=== PATIENT | female | born 2000 | race African-American/Black ===

== ENCOUNTER 2019-08-25 06:24 | Emergency (ER) | payer MEDICAID ==
[~2019-08-25] VITALS: Ht 162.6 cm; Wt 125.0 kg
[~2019-08-25 06:24] MED LIST: ARIP10TA33 PO; DIPH25CA61 PO; SERT50TA28 PO
[2019-08-25 06:27] VITALS: BP 127/79
--- NOTE | 2019-08-25 07:05 | NUR ---
PT ASSISTED TO ROOM BY STAFF, UNWILLING TO SIT AT THIS TIME. APPEARS VERY ANXIOUS. AWAITING ERP.
--- NOTE | 2019-08-25 07:20 | NUR ---
PT WITH SI/HI, UNABLE TO REALLY DESCRIBE PLAN AND UNSURE WHY SHE IS HAVING THOSE THOUGHTS. WAS AT [facility] FOR SAME AND WALKED OUT.
[2019-08-25] MEDS ORDERED: LORazepam 2 MG/ML, 1ML IM ONE (07:30)
[2019-08-25] MEDS ORDERED: HALOPERIDOL 5 MG/ML IM ONE (07:30)
[2019-08-25] MEDS ORDERED: HALOPERIDOL 5 MG/ML ONE (07:33)
[2019-08-25] MEDS ORDERED: LORazepam 2 MG/ML, 1ML ONE (07:33)
--- NOTE | 2019-08-25 07:40 | NUR ---
SPOKE WITH PATIENT KAYODE. NO SPECIFIC SI/HI PLAN. HAS NEVER ATTEMPTED TO HURT HERSELF OR SOMEONE ELSE. SITTER AT BEDROOM. ROOM SECURE POSSIBLE. PATIENT PACING AROUND AND ANXIOUS. PT MEDICATED PER MAR. AGREEABLE TO POC.
--- NOTE | 2019-08-25 08:32 | NUR ---
PATIENT CONTINUES TO BE RESTLESS AND PACING IN ROOM. SITTER OUTSIDE ROOM.
[2019-08-25 09:42] LABS: ALBUMIN 3.8 g/dL (3.4-5.0); ANION GAP 9 mmol/L (5-15); CALCIUM 9.4 mg/dL (8.5-10.1); CHLORIDE 105 mmol/L (98-107); CREATININE 0.79 mg/dL (0.55-1.02)
[2019-08-25 09:56] LABS: MEAN CORPUSCULAR HEMOGLOBIN 24.4 pg (27.0-34.8); MEAN CORPUSCULAR HGB CONC 32.3 g/dL (32.4-35.8); MEAN CORPUSCULAR VOLUME 75.6 fL (80-100); MEAN PLATELET VOLUME 8.7 fL (7.4-10.4); PLATELET COUNT 374 x10^3/uL (130-400); RED BLOOD COUNT 5.29 x10^6/uL (3.82-5.3); RED CELL DISTRIBUTION WIDTH 15.4 % (9.6-15.2)
--- NOTE | 2019-08-25 09:56 | NUR ---
Report to LAUREN Castro.
[2019-08-25 09:58] LABS: BASOPHILS # (AUTO) 0.08 x10^3/uL (0-0.3); BASOPHILS % (AUTO) 1 % (0-1); EOSINOPHILS # (AUTO) 0.02 x10^3/uL (0-0.8); EOSINOPHILS % (AUTO) 0 % (1-7); LYMPHOCYTES # (AUTO) 1.94 x10^3/uL (1-6.1); LYMPHOCYTES % (AUTO) 16 % (22-44); MD SCAN; MONOCYTES # (AUTO) 0.35 x10^3/uL (0-1.4); MONOCYTES % (AUTO) 3 % (2-9); NEUTROPHILS # (AUTO) 9.82 x10^3/uL (1.8-8.0); NEUTROPHILS % (AUTO) 80 % (42-75)
--- NOTE | 2019-08-25 10:02 | NUR ---
PT MOVED TO PSYCH ROOM IN ROOM 3. PT BEING OBSERVED BY SITTER. PT CALM AND COOPERATIVE.
--- NOTE | 2019-08-25 12:12 | NUR ---
PT UP AND WALKED TO USE PHONE WITH STEADY GAIT. PT IN RESTROOM FOR UA SAMPLE. [facility]ENATE PSYCH IT ACCOUNT MANAGER WAITING IN ROOM TO SEE PT.
[2019-08-25 12:43] LABS: MICROSCOPIC INDICATED
[2019-08-25 12:45] LABS: CULTURE INDICATED? NO
[2019-08-25 12:50] LABS: CANNABINOID SCREEN, URINE Negative (Negative); METHADONE SCREEN, URINE Negative (Negative); OPIATE SCREEN, URINE Negative (Negative)
[2019-08-25 12:58] LABS: AMPHETAMINE SCREEN, URINE Positive (Negative); BARBITURATE SCREEN, URINE Negative (Negative); BENZODIAZEPINE SCREEN, URINE Negative (Negative); COCAINE SCREEN, URINE Negative (Negative)
[2019-08-25] MEDS ORDERED: ARIPIPRAZOLE 15 MG TABLET PO SCH (13:00)
--- NOTE | 2019-08-25 13:01 | NUR ---
PT GIVEN MEAL TRAY. PT DRINKING WATER.
--- NOTE | 2019-08-25 13:09 | NUR ---
REPORT RECEIVED FROM LAUREN MCKENZIE. ASSUMING PRIMARY CARE OF PT.
--- NOTE | 2019-08-25 13:19 | NUR ---
PT SITTING UP ON [facility] REQUESTING THAT HER CELL PHONE BE CHARGED. RN INFORMED PT THAT SHE WAS NOT ALOUD TO HAVE HER CELL PHONE AND LOOM DOFFER. PT VERBALIZED UNDERSTANDING. SITTER OUTSIDE OF ROOM MONITORING PATIENT. SI PRECAUTIONS IMPLEMENTED. RN TO CONTINUE TO MONITOR.
--- NOTE | 2019-08-25 13:39 | NUR ---
PT MEDICATED PER EMAR.
--- NOTE | 2019-08-25 14:37 | NUR ---
REPORT TO LAUREN MCGHEE. PT TO BE TRANSPORTED TO ROOM 263.
[2019-08-25] MEDS ORDERED: TRAZODONE 100MG TABLET PO SCH (21:00)
[2019-08-26] MEDS ORDERED: ZOLP5TAB PO (13:56)
== END 2019-08-25 16:14 | disposition other institution (70) ==
LOC: ED 07:34
DX: R45.851 Suicidal ideations (principal); F31.9 Bipolar disorder, unspecified; R00.0 Tachycardia, unspecified
CPT/HCPCS: 36415; 80048; 80307; 81001; 82040; 84703; 85025; 93005; 96372; 99284; J1630; J2060

== ENCOUNTER 2019-08-25 14:23 | Inpatient (IN) | payer MEDICAID ==
[~2019-08-25] VITALS: Ht 162.6 cm; Wt 124.2 kg
[2019-08-25] MEDS ORDERED: ONDANSETRON ODT 4 MG PO PRN (15:00)
[2019-08-25] MEDS ORDERED: ACETAMINOPHEN 325 MG TABLET PO PRN (15:00)
[2019-08-25] MEDS ORDERED: POLYETHYLENE GLYCOL 17 GM PACKET PO PRN (15:00)
[2019-08-25] MEDS ORDERED: BISACODYL 10 MG SUPP PR PRN (15:00)
[2019-08-25] MEDS ORDERED: DOCUSATE 100 MG CAPSULE PO PRN (15:00)
[2019-08-25 15:16] VITALS: BP 116/81
[2019-08-25] MEDS ORDERED: PLEASE ENTER HEIGHT AND WEIGHT MC SCH (15:30)
[2019-08-25] MEDS ORDERED: POTASSIUM CHLORIDE 20 MEQ TAB.ER.PRT PO ONE (17:00)
[2019-08-25] MEDS ORDERED: NICOTINE 7 MG/24 HR PATCH.TD24 TD SCH (17:00)
[2019-08-25 19:30] VITALS: BP 131/84
[2019-08-25] MEDS: TRAZODONE 100MG TABLET PO PRN (20:13)
[2019-08-26 05:33] LABS: ANION GAP 6 mmol/L (5-15); CALCIUM 8.9 mg/dL (8.5-10.1); CHLORIDE 107 mmol/L (98-107); CREATININE 0.74 mg/dL (0.55-1.02)
[2019-08-26 05:44] LABS: CHOL/HDL RATIO 3.6; CHOLESTEROL, TOTAL 147 mg/dL (140-239); FREE T4 (FREE THYROXINE) 1.24 ng/dL (0.76-1.46); HDL CHOL % 28 % (28-40); HDL CHOLESTEROL (DIRECT) 41 mg/dL (40-60); LDL CHOLESTEROL,CALCULATED 72 mg/dL (54-169); LDL/HDL RATIO 1.8 (0.5-3.0); TRIGLYCERIDES 170 mg/dL (50-200); VLDL CHOLESTEROL 34 mg/dL (0-25)
[2019-08-26 07:20] VITALS: BP 101/68
[2019-08-26 08:10] LABS: BASOPHILS # (AUTO) 0.03 x10^3/uL (0-0.3); BASOPHILS % (AUTO) 0 % (0-1); EOSINOPHILS # (AUTO) 0.12 x10^3/uL (0-0.8); EOSINOPHILS % (AUTO) 2 % (1-7); LYMPHOCYTES # (AUTO) 2.42 x10^3/uL (1-6.1); LYMPHOCYTES % (AUTO) 30 % (22-44); MD NO; MEAN CORPUSCULAR HEMOGLOBIN 24.3 pg (27.0-34.8); MEAN CORPUSCULAR HGB CONC 31.8 g/dL (32.4-35.8); MEAN CORPUSCULAR VOLUME 76.2 fL (80-100); MONOCYTES # (AUTO) 0.61 x10^3/uL (0-1.4); MONOCYTES % (AUTO) 8 % (2-9); NEUTROPHILS # (AUTO) 4.93 x10^3/uL (1.8-8.0); NEUTROPHILS % (AUTO) 61 % (42-75); PLATELET COUNT 345 x10^3/uL (130-400)
[2019-08-26] MEDS: SERTRALINE 100MG TABLET PO SCH (08:32)
[2019-08-26] MEDS ORDERED: ARIPIPRAZOLE 10 MG TABLET PO SCH (09:00)
[2019-08-26] MEDS ORDERED: ZOLP5TAB PO (13:56)
[2019-08-26] MEDS ORDERED: POTASSIUM CHLORIDE 20 MEQ TAB.ER.PRT PO ONE (15:30)
[2019-08-26 19:38] VITALS: BP 124/78
[2019-08-26] MEDS: TRAZODONE 100MG TABLET PO PRN (20:20)
[2019-08-27 07:41] VITALS: BP 110/76
[2019-08-27] MEDS: SERTRALINE 100MG TABLET PO SCH (08:47)
[2019-08-27] MEDS: ARIPIPRAZOLE 15 MG TABLET PO SCH (08:47)
[2019-08-27] MEDS ORDERED: HYDROXYZINE PAMOATE 25MG CAP ONE (15:50)
[2019-08-27] MEDS: HYDROXYZINE PAMOATE 50MG CAP PO PRN (16:00)
[2019-08-27 19:35] VITALS: BP 110/75
[2019-08-27] MEDS: TRAZODONE 100MG TABLET PO PRN (20:14)
[2019-08-28 07:30] VITALS: BP 116/68
[2019-08-28] MEDS: SERTRALINE 100MG TABLET PO SCH (08:21)
[2019-08-28] MEDS: ARIPIPRAZOLE 15 MG TABLET PO SCH (08:21)
[2019-08-28 19:00] VITALS: BP 91/69
[2019-08-28] MEDS: HYDROXYZINE PAMOATE 50MG CAP PO PRN (20:27)
[2019-08-28] MEDS: TRAZODONE 100MG TABLET PO PRN (20:27)
[2019-08-29 07:42] VITALS: BP 108/71
[2019-08-29] MEDS: ARIPIPRAZOLE 15 MG TABLET PO SCH (09:09)
[2019-08-29] MEDS: SERTRALINE 100MG TABLET PO SCH (09:10)
[2019-08-29] MEDS ORDERED: TRAZ-175 PO (13:30)
[2019-08-29] MEDS ORDERED: ARIP15TA3 PO (13:30)
[2019-08-29] MEDS ORDERED: SERT100T32 PO (13:30)
[2019-08-29 19:22] VITALS: BP 101/74
[2019-08-29] MEDS: TRAZODONE 100MG TABLET PO PRN (21:59)
[2019-08-30 07:20] VITALS: BP 92/60
[2019-08-30] MEDS: ARIPIPRAZOLE 15 MG TABLET PO SCH (08:08)
[2019-08-30] MEDS: SERTRALINE 100MG TABLET PO SCH (08:08)
== END 2019-08-30 08:30 | disposition home or self-care (01) | DRG 885 ==
LOC: 2N 14:59
PROVIDERS: ADMIT Psychiatry & Neurology Psychosomatic Medicine; ATTEND Internal Medicine
DX: F25.0 Schizoaffective disorder, bipolar type (principal); R45.851 Suicidal ideations; Z68.42 Body mass index [BMI] 45.0-49.9, adult; E66.01 Morbid (severe) obesity due to excess calories; E87.6 Hypokalemia; F17.210 Nicotine dependence, cigarettes, uncomplicated; I45.10 Unspecified right bundle-branch block; K21.9 Gastro-esophageal reflux disease without esophagitis; Z79.899 Other long term (current) drug therapy; Z91.5 Personal history of self-harm
CPT/HCPCS: 36415; 71045; 80048; 80061; 80307; 81001; 82040; 83735; 84439; 84443; 84703; 85025; 93005; 96372; 99284; J1630; J2060

== ENCOUNTER 2019-10-24 21:48 | Emergency (ER) | payer MEDICAID ==
[~2019-10-24] VITALS: Ht 162.6 cm; Wt 82.0 kg
[~2019-10-24 21:48] MED LIST changes: +ARIP15TA3 PO; +SERT100T32 PO; +TRAZ-175 PO; +ZOLP5TAB PO
--- NOTE | 2019-10-24 21:57 | NUR ---
PT PRESENTS TO THE ED WITH 'S OFFICE FOR SI. PER OFFICER, PT IS RELEASED FROM [facility] AND IS NOW ON A LEGAL HOLD. PT HAD VOICED SI AND PARANOIA WHILE IN [facility]. OFFICER STATED THAT PATIENT WAS FEARFUL OF OFFICERS AND VOICED THAT SHE WAS SCARED SHE WAS GOING TO KILL HER. PT REPORTS "I WANT TO ". PT DOES NOT ELABORATE ON HOW SHE IS FEELING. SHE DENIES PREVIOUS SI OR SA. SHE DENIES ANY PLAN AT THIS TIME. SHE REPORTS HX OF DRUG USE BUT NOTHING IN THE PAST YEAR. DENIES ETOH. REPORTS HX OF DEPRESSION AND IS NOT TAKING MEDICATIONS. PT PLACED IN GOWN. BELONGINGS IN LOCKED CABINET.
--- NOTE | 2019-10-24 21:59 | NUR ---
Patient placed in gown. yellow socks given to patient. Patient belongings placed in locker. Addendum: 10/24/19 at 2200 by [email or web address] 2 bags
[2019-10-24 22:23] LABS: ALANINE AMINOTRANSFERASE 36 U/L (12-78); ALBUMIN 4.1 g/dL (3.4-5.0); ANION GAP 9 mmol/L (5-15); CALCIUM 9.2 mg/dL (8.5-10.1); CHLORIDE 105 mmol/L (98-107); CREATININE 1.01 mg/dL (0.55-1.02); SALICYLATE LEVEL 2.6 mg/dL (2.8-20.0)
[2019-10-24 22:25] LABS: ALKALINE PHOSPHATASE 89 U/L (45-117); BILIRUBIN,TOTAL 0.5 mg/dL (0.2-1.0); TOTAL PROTEIN 9.2 g/dL (6.4-8.2)
[2019-10-24 22:34] LABS: BASOPHILS # (AUTO) 0.05 x10^3/uL (0-0.3); BASOPHILS % (AUTO) 0 % (0-1); EOSINOPHILS # (AUTO) 0.03 x10^3/uL (0-0.8); EOSINOPHILS % (AUTO) 0 % (1-7); LYMPHOCYTES # (AUTO) 2.48 x10^3/uL (1-6.1); LYMPHOCYTES % (AUTO) 20 % (22-44); MD NO; MEAN CORPUSCULAR HEMOGLOBIN 24.8 pg (27.0-34.8); MEAN CORPUSCULAR VOLUME 77.4 fL (80-100); MONOCYTES # (AUTO) 1.09 x10^3/uL (0-1.4); MONOCYTES % (AUTO) 9 % (2-9); NEUTROPHILS # (AUTO) 8.76 x10^3/uL (1.8-8.0); NEUTROPHILS % (AUTO) 71 % (42-75); PLATELET COUNT 362 x10^3/uL (130-400); RED BLOOD COUNT 5.33 x10^6/uL (3.82-5.3); RED CELL DISTRIBUTION WIDTH 16.6 % (9.6-15.2)
--- NOTE | 2019-10-24 23:14 | NUR ---
PT AWARE OF THE NEED FOR URINE SPECIMEN. REPORTS SHE CANNOT PROVIDE URINE SPECIMEN AT THIS TIME. OFFERED WATER AND DECLINED.
--- NOTE | 2019-10-24 23:50 | NUR ---
PT DENIES ANY SI AT THIS TIME. REPORTS BEING AROUND A BUNCH OF PEOPLE MAKES HER FEEL ANXIOUS.
[2019-10-24 23:51] VITALS: BP 142/76
== END 2019-10-24 23:53 | disposition home or self-care (01) ==
LOC: ED 23:30
DX: F25.9 Schizoaffective disorder, unspecified (principal); F33.9 Major depressive disorder, recurrent, unspecified; Z72.9 Problem related to lifestyle, unspecified
CPT/HCPCS: 36415; 80053; 80307; 84443; 85025; 99284